=== PATIENT | female | born 2000 | race African-American/Black ===

== ENCOUNTER 2019-03-06 20:58 | Emergency (ER) | payer OTHER ==
[2019-03-06] MEDS ORDERED: Bacitracin OINTMENT* 0.5% 0.5 oz TUBE TOPICAL ONE (22:00)
--- NOTE | 2019-03-06 22:14 | ED ---
Laceration/Wound HPI - HPI Summary HPI Summary: Patient complains of laceration to fifth digit of right hand 2 days ago from knife. Tetanus status up-to-date. Denies any other pain, injury or symptoms. - History of Current Complaint Stated Complaint: RT PINKY LAC PER PT Time Seen by Provider: 03/06/19 21:36 Hx Obtained From: Patient Mechanism of Injury: Sharp/Blunt Trauma Onset Severity: Mild Current Severity: None Pain Intensity: 0 Pain Scale Used: 0-10 Numeric Associated Signs & Symptoms: Negative - Allergy/Home Medications Allergies/Adverse Reactions: Allergies Allergy/AdvReac Type Severity Reaction Status Date / Time No Known Allergies Allergy Verified 03/06/19 21:02 Home Medications: Home Medications NK [No Home Medications Reported] 03/06/19 [History Confirmed 03/06/19] PMH/Surg Hx/FS Hx/Imm Hx Endocrine/Hematology History: Denies: Hx Anticoagulant Therapy Cardiovascular History: Denies: Hx Pacemaker/ICD History: Denies: Hx Dialysis Sensory History: Denies: Hx Eye Prosthesis Opthamlomology History: Denies: Hx Legally Blind EENT History: Denies: Hx Deafness Neurological History: Denies: Hx Dementia Infectious Disease History: No Infectious Disease History: Denies: Traveled Outside the [place] in Last 30 Days - Family History Known Family History: Positive: Non-Contributory - Social History Alcohol Use: Rare Substance Use Type: Reports: None Smoking Status (MU): Never Smoked Tobacco Review of Systems Constitutional: Negative Eyes: Negative ENT: Negative Cardiovascular: Negative Respiratory: Negative Gastrointestinal: Negative Genitourinary: Negative Musculoskeletal: Negative Skin: Negative Neurological: Negative Psychological: Normal All Other Systems Reviewed And Are Negative: Yes Physical Exam - Summary Physical Exam Summary: Laceration at the medial base of fifth digit of right hand near webbing between fingers. Flexion and extension intact to each individual joint. Triage Information Reviewed: Yes Vital Signs On Initial Exam: Initial Vitals Temp Pulse Resp BP Pulse Ox 98.6 F 100 15 139/89 100 03/06/19 20:59 03/06/19 20:59 03/06/19 20:59 03/06/19 20:59 03/06/19 20:59 Vital Signs Reviewed: Yes Appearance: Positive: Well-Appearing Skin: Positive: Warm Head/Face: Positive: Normal Head/Face Inspection Eyes: Positive: Normal Neck: Positive: Supple Respiratory/Lung Sounds: Positive: Clear to Auscultation Cardiovascular: Positive: Normal Abdomen Description: Positive: Nontender Musculoskeletal: Positive: Normal Neurological: Positive: Normal Psychiatric: Positive: Normal AVPU Assessment: Alert - Sravani Coma Scale Best Eye Response: 4 - Spontaneous Best Motor Response: 6 - Obeys Commands Best Verbal Response: 5 - Oriented Coma Scale Total: 15 Procedures - Sedation Patient Received Moderate/Deep Sedation with Procedure: No Diagnostics - Vital Signs Vital Signs Temp Pulse Resp BP Pulse Ox 03/06/19 20:59 98.6 F 100 15 139/89 100 - Laboratory Lab Statement: Any lab studies that have been ordered have been reviewed, and results considered in the medical decision making process. Laceration Repair Course/Dx - Course Course Of Treatment: Patient complains of laceration to fifth digit of right hand 2 days ago from knife. Tetanus status up-to-date. Denies any other pain, injury or symptoms. Vital signs within normal limits. Laceration older than 12 hours, will be left to heal by secondary intention. - Clinical Impression Provider Diagnoses: Laceration Discharge ED - Sign-Out/Discharge Documenting (check all that apply): Patient Departure - Discharge Plan Condition: Stable Disposition: HOME Patient Education Materials: Finger Laceration (ED) Referrals: No Primary Care Phys,NOPCP [Primary Care Provider] - Additional Instructions: Wash wound with warm running water and soap. Keep clean dry and protected when not washing. Cover with antibiotic ointment and Band-Aid. Confirmed tetanus status, and get a booster shot if you are not up-to-date - Billing Disposition and Condition Condition: STABLE Disposition: Home - Attestation Statements Provider Attestation: I was available for consult. This patient was seen by the GISEL. The patient was not presented to, seen by, or examined by me. Yuriy Meng MD
[2019-03-06 22:30] VITALS: BP 115/59
== END 2019-03-06 22:29 | disposition home or self-care (01) ==
LOC: ED 20:58
DX: S61.216A Laceration without foreign body of right little finger without damage to nail, initial encounter (principal); W26.0XXA Contact with knife, initial encounter; Y92.9 Unspecified place or not applicable
CPT/HCPCS: 99282; A9270-GY